=== PATIENT | male | born 1935 | race Caucasian/White ===

== ENCOUNTER 2016-12-16 06:45 | Day surgery (SDC) | payer OTHER ==
[2016-12-11 17:20] LABS: HEMATOCRIT 42.5 % (40.0-51.0)
[2016-12-11 17:28] LABS: CALCIUM, SERUM 8.7 MG/DL (8.5-10.4); CHLORIDE, SERUM 108 MMOL/L (96-112); CO2 (CARBON DIOXIDE) 26 MMOL/L (24-34); CREATININE 1.04 MG/DL (0.70-1.30); GFR AFRICAN AMERICAN 78 ML/MIN (>=60); GFR NON AFRICAN AMERICAN 67 ML/MIN (>=60); GLUCOSE, SERUM 92 MG/DL (60-99); POTASSIUM, SERUM 4.5 MMOL/L (3.5-5.3); SODIUM, SERUM 143 MMOL/L (135-148)
[2016-12-11 17:29] LABS: BUN (BLOOD UREA NITROGEN) 39 MG/DL (6-23)
--- NOTE | ~2016-12-16 | OP ---
Record Of Operation [facility] [address] [place]. 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 PROCEDURE PERFORMED: 1. Wide local excision of spindle carcinoma of the midline frontal scalp. 2. Complex layered closure of 3 cm x 11 cm defect. SURGEON: Joe Huitron M.D. PROCESS IMPROVEMENT ENGINEER: Yara Canales M.D. ANESTHESIA: General. COMPLICATIONS: None. CONDITION: Stable to recovery. INDICATIONS: An 81-year-old male with spindle cell carcinoma of the frontal scalp. PROCEDURE IN DETAIL: The patient was identified in preoperative holding, taken back to the operating room, and placed supine on the operating room table. General anesthesia was established. He was prepped and draped in a standard fashion for the operation. A time-out was called. The patient and procedure were confirmed. A 0.5 cm margin was marked around the well-demarcated spindle neoplasm. The area was infiltrated subcutaneously with 1% lidocaine with 1:100,000 epinephrine. He was then prepped and draped in a standard fashion for the operation. Using 2.5x loupe magnification and headlight illumination, the operation commenced. A 15 blade was used to make the skin incision. A needle-tip cautery used to make the deeper incisions down to the galea. This specimen was tagged at 12 o'clock and sent to Pathology for frozen section analysis. The senior sales representative margins were clear. The wound was undermined peripherally and the galea was back cut in three parallel lines on either side of the closure. This was done with needle tip cautery. The Burow's triangles were removed to allow flap closure at the 12 o'clock and 6 o'clock locations. The defect ended up being approximately 3 cm in width by approximately 10 cm to 11 cm in length. It was closed in layers using 3-0 Vicryl, 3-0 Prolene, and then centrally 1-0 [id number] Prolene suture for the tighter portion of the closure. Dermabond followed by Steri-Strips were placed. The patient was awakened and taken to recovery in stable condition. PH/MODL Joe Huitron, Record Of Operation [address] [address] NAME: AVANI ALVARENGA : 37 STATUS : REG [facility] [place] PAT#: [id number] AGE: 81 ADM/REG DATE : 12/16/16 MR#: [id number] REPORT SERV DATE: 12/16/16 DICTATED BY: JOE HUITRON DATE: 12/16/16 REPORT STATUS : Draft TRANSCRIBED BY: MODArpit DATE: 12/16/16 Olga / [id number] CC: Olga Lackey M.D.
[~2016-12-16 06:45] MED LIST: ASABAYER PO; HYDROCHLOROT25 MG PO; LISINOPRIL40 MG PO; NORV5 PO; PRILOSEC40 MG PO; ZOCOR40 PO
== END 2016-12-16 12:33 | disposition home or self-care (01) ==
LOC: SDC 06:45
PROVIDERS: Specialist
PROC: 0JB00ZZ Excision of Scalp Subcutaneous Tissue and Fascia, Open Approach (ICD-10-PCS; principal; 2016-12-16 09:00)
DX: C44.49 Other specified malignant neoplasm of skin of scalp and neck (principal); J44.9 Chronic obstructive pulmonary disease, unspecified; I25.10 Atherosclerotic heart disease of native coronary artery without angina pectoris; Z98.61 Coronary angioplasty status; Z95.1 Presence of aortocoronary bypass graft; I25.2 Old myocardial infarction; K21.9 Gastro-esophageal reflux disease without esophagitis; Z85.46 Personal history of malignant neoplasm of prostate; I10 Essential (primary) hypertension
CPT/HCPCS: 36415; 80048; 85014; 85018; 88305; 88331; 88341; 88342; 93005; J2405; J3010